=== PATIENT | female | born 1955 | race Caucasian/White ===

== ENCOUNTER 2022-11-02 12:08 | Outpatient (CLI) | payer OTHER, SELFPAY ==
[2022-11-02 08:43] LABS: Chloride* 105 mmol/L (96-114)
[2022-11-02 08:44] LABS: Potassium* 4.3 mmol/L (3.6-5.1); Sodium* 141 mmol/L (135-149)
[2022-11-02 08:46] LABS: Cholesterol* 263 mg/dL (90-199); Creatinine* 0.8 mg/dL (0.5-1.5); Estimated Glomerular Filt Rate 82 ml/min
[2022-11-02 08:47] LABS: Blood Urea Nitrogen* 24 mg/dL (7-30); Calcium* 9.5 mg/dL (8.4-10.6); Carbon Dioxide* 30 mmol/L (20-32); Glucose* 94 mg/dL (60-115); HDL Cholesterol* 101 mg/dL (>=50); LDL Cholesterol Calculated 139 mg/dL (<100); Triglycerides* 115 mg/dL (40-149)
== END 2022-11-02 12:09 | disposition home or self-care (01) ==
PROVIDERS: PCP Internal Medicine; Visit Provider Internal Medicine
DX: Z00.00 Encounter for general adult medical examination without abnormal findings (principal); I10 Essential (primary) hypertension; E78.5 Hyperlipidemia, unspecified
CPT/HCPCS: 80048; 80061

== ENCOUNTER 2023-01-03 16:50 | Emergency (ER) | payer OTHER, SELFPAY ==
[2023-01-03 17:09] VITALS: BP 207/95; PULSE 90; RESP 16; TEMP 36.2; O2SAT 98; BMI 28.8
--- NOTE | 2023-01-03 17:45 | ED.GENADULT ---
HPI - General Adult General Chief complaint: Unspecified Complaint, Adult Stated complaint: high BP since this morning, headache Time Seen by Provider: 01/03/23 17:15 History of Present Illness HPI narrative: This 67-year-old female states that she is feeling some fatigue and mild headache since yesterday. She comes in because she noticed that her blood pressure was elevated. She is taking lisinopril. She does not report any fevers. She is otherwise in good health normally. She states that she did start a new cholesterol medicine about a month or 2 ago. Related Data Home Medications Medication Instructions Recorded Confirmed loratadine 10 mg tablet 10 mg PO .prn 06/26/22 06/26/22 Previous Rx's Medication Instructions Recorded clobetasol 0.05 % topical cream 1 applic topical BID #30 grams 05/04/22 atorvastatin 20 mg tablet 20 mg PO QHS #90 tabs 11/05/22 lisinopril 10 mg tablet 10 mg PO DAILY #90 tabs 11/05/22 Allergies Allergy/AdvReac Type Severity Reaction Status Date / Time pseudoephedrine Allergy Severe Anaphylaxis Verified 11/05/22 07:44 [From Sudafed] codeine Allergy Intermediate Vomiting Verified 11/05/22 07:44 naproxen Allergy Intermediate Rash Verified 11/05/22 07:44 house dust mite Allergy Mild Sneezing Verified 11/05/22 07:44 latex Allergy Mild Rash Verified 11/05/22 07:44 Review of Systems Status of ROS: Reports: 10 or more systems reviewed and unremarkable except as noted in History and below Narrative: Constitutional: No fevers, no weight gain or loss. Eyes: No discharge. No vision changes. HENT: No congestion, no sore throat, no ear pain. Cardiovascular: No chest pain, no palpitations. Respiratory: No shortness of breath, no wheezes, no cough. Gastrointestinal: No abdominal pain, no vomiting, no diarrhea. Genitourinary: No dysuria, no hematuria. Musculoskeletal: Normal range of motion. Skin: No rashes, no pruritis. Neurological: No dizziness, weakness, sensory change, speech change. Endo/Heme/Allergies: No bruising or bleeding. No polydipsia. Pysch: no suicidality, no anxiety, no insomnia. All other systems reviewed and are negative. [facility] History (Updated 11/04/22 @ 09:28 by Samantha Musa) History of cholecystectomy (11/19/10) ?Z90.49 - Acquired absence of other specified parts of digestive tract (ICD-10) History of tonsillectomy ?Z90.89 - Acquired absence of other organs (ICD-10) Social History Smoking Status: Never smoker Little interest or pleasure in doing things: not at all Feeling down, depressed, or hopeless: not at all Exam Narrative: Exam Narrative: Constitutional: Well-developed, well-nourished, no acute distress. HEENT: Normocephalic, atraumatic. Neck: Normal range of motion. Nontender. Supple. Heart: Regular. No murmurs. Normal rate. Intact distal pulses. Lungs: Clear to auscultation. No chest discomfort. No wheezes, rhonchi, or rales. Abdomen: Normal bowel sounds. Nontender. No rebound tenderness. Genitalia: Deferred. Back: No midline tenderness. Normal range of motion. Extremities: Normal range of motion. No injury. Skin: Intact. No rash. Warm. No erythema or pallor. Neurologic: No altered sensation. No weakness. Alert and oriented. Psychiatric: No suicidality. No anxiety or depression. No insomnia. Nursing notes and vitals signs are reviewed. Const: Vital Signs, click to edit/add: Vital Signs - 24 hr 01/03/23 17:09 Temperature 97.1 F L Pulse Rate [Pulse Oximeter] 90 Respiratory Rate 16 Blood Pressure [Le ft Upper Arm] 207/95 H Pulse Oximetry 98 Oxygen Delivery Me thod Room Air Course Vital Signs Vital signs: Initial Vital Signs Temperature 97.1 F L 01/03/23 17:09 Temperature Source Temporal Artery Scan 01/03/23 17:09 Pulse Rate 90 01/03/23 17:09 Respiratory Rate 16 01/03/23 17:09 Blood Pressure 207/95 H 01/03/23 17:09 Blood Pressure Mean 132 01/03/23 17:09 Pulse Oximetry 98 01/03/23 17:09 Oxygen Delivery Method Room Air 01/03/23 17:09 Vital Signs Temperature 97.1 F L 01/03/23 17:09 Pulse Rate 90 01/03/23 17:09 Respiratory Rate 16 01/03/23 17:09 Blood Pressure 207/95 H 01/03/23 17:09 Pulse Oximetry 98 01/03/23 17:09 Oxygen Delivery Method Room Air 01/03/23 17:09 Temperature 97.1 F L 01/03/23 17:09 Pulse Rate 90 01/03/23 17:09 Respiratory Rate 16 01/03/23 17:09 Blood Pressure 207/95 H 01/03/23 17:09 Pulse Oximetry 98 01/03/23 17:09 Oxygen Delivery Method Room Air 01/03/23 17:09 Medical Decision Making MDM Narrative Medical decision making narrative: This patient comes in with some diffuse and mild symptoms but related to this she noticed that her blood pressure was elevated. She is taking lisinopril. She reports a mild headache and some generalized fatigue. I did take time to explain management of hypertension. I indicated the who criteria for making adjustment involves when person is feeling normal, at these 3 readings, and over the course of 2 weeks of time. She may need to follow-up with her primary physician if her blood pressure is persistently elevated. I did check labs and these returned with reassuring findings. Patient is okay to return home and encouraged to record her blood pressure and follow-up with her primary physician for ongoing management. Lab Data Labs: Lab Results 01/03/23 Range/Units 18:05 WBC 6.86 (4.50-11.00) K/uL RBC 4.81 (4.00-5.20) m/uL Hgb 14.3 (12.0-16.0) gm/dL Hct 44.0 (33.0-51.0) % MCV 92 (80-100) fL MCH 30 (26-34) pg MCHC 33 (32-36) gm/dL RDW Coeff of Eugene 12.6 (11.5-15.5) % Plt Count 245 (140-440) K/uL Neut % (Auto) 76.5 H (42.0-72.0) % Lymph % (Auto) 17.3 L (20-44) % Ripley % (Auto) 5.1 (0.0-11.0) % Eos % (Auto) 0.9 (0.0-7.0) % Baso % (Auto) 0.1 (0.0-3.0) % Neut # (Auto) 5.20 (1.7-7.0) K/uL Lymph # (Auto) 1.20 (0.90-2.90) K/uL Ripley # (Auto) 0.30 (0.00-0.90) K/UL Eos # (Auto) 0.06 (0.00-0.50) K/uL Baso # (Auto) 0.01 (0.00-0.30) K/uL Sodium 138 (135-149) mmol/L Potassium 4.9 (3.6-5.1) mmol/L Chloride 104 (96-114) mmol/L Carbon Dioxide 30 (20-32) mmol/L BUN 15 (7-30) mg/dL Creatinine 0.7 (0.5-1.5) mg/dL Estimated Creat Clear 47.79 Estimated GFR 95 ml/min Glucose 101 (60-115) mg/dL Calcium 9.5 (8.4-10.6) mg/dL Total Bilirubin 0.8 (0.1-1.5) mg/dL Direct Bilirubin 0.2 (0.0-0.5) mg/dL AST 31 (12-35) U/L ALT 29 (4-35) U/L Alkaline Phosphatase 74 (40-150) U/L Total Protein 8.0 (6.0-8.3) g/dL Albumin 4.5 (3.3-5.0) g/dL Discharge Plan Discharge Clinical Impression: Elevated blood pressure reading Patient Disposition: Home, Self-Care Condition: Stable Additional Instructions: Continue current plans. Recheck blood pressure and follow-up with primary physician if readings are persistently elevated. Prescriptions: No Action loratadine 10 mg tablet 10 mg PO .prn lisinopril 10 mg tablet 10 mg PO DAILY Qty: 90 3RF atorvastatin 20 mg tablet 20 mg PO QHS Qty: 90 3RF clobetasol 0.05 % cream 1 applic topical BID Qty: 30 2RF Follow Up/Referrals: Bina Gann MD [Primary Care Provider] - Stand Alone Forms: [employer] Info Instructions
[2023-01-03 18:14] LABS: Basophils Absolute Auto 0.01 K/uL (0.00-0.30); Basophils Percent Auto 0.1 % (0.0-3.0); Eosinophils Absolute Auto 0.06 K/uL (0.00-0.50); Eosinophils Percent Auto 0.9 % (0.0-7.0); Hemoglobin* 14.3 gm/dL (12.0-16.0); Immature Granulocytes Abs Auto 0.01 K/uL (0.00-0.30); Immature Granulocytes Pct Auto 0.1 %; Lymphocytes Percent Auto 17.3 % (20-44); Mean Corpuscular HGB Conc 33 gm/dL (32-36); Mean Corpuscular Hemoglobin 30 pg (26-34); Mean Corpuscular Volume 92 fL (80-100); Monocytes Percent Auto 5.1 % (0.0-11.0); Neutrophils Percent Auto 76.5 % (42.0-72.0); Platelet Count* 245 K/uL (140-440); RDW Coefficient of Variation % 12.6 % (11.5-15.5); Red Blood Count 4.81 m/uL (4.00-5.20); White Blood Count* 6.86 K/uL (4.50-11.00)
[2023-01-03 18:18] LABS: Slide Review Reflex No
[2023-01-03 18:27] LABS: Albumin* 4.5 g/dL (3.3-5.0); Chloride* 104 mmol/L (96-114)
[2023-01-03 18:28] LABS: Potassium* 4.9 mmol/L (3.6-5.1); Sodium* 138 mmol/L (135-149)
[2023-01-03 18:30] LABS: Alkaline Phosphatase* 74 U/L (40-150); Aspartate Amino Transferase* 31 U/L (12-35); Bilirubin Direct* 0.2 mg/dL (0.0-0.5); Bilirubin Total* 0.8 mg/dL (0.1-1.5); Blood Urea Nitrogen* 15 mg/dL (7-30); Carbon Dioxide* 30 mmol/L (20-32); Creatinine* 0.7 mg/dL (0.5-1.5); Est. Creatinine Clearance* 47.79; Estimated Glomerular Filt Rate 95 ml/min
[2023-01-03 18:31] LABS: Alanine Aminotransferase* 29 U/L (4-35); Calcium* 9.5 mg/dL (8.4-10.6); Glucose* 101 mg/dL (60-115)
[2023-01-03 19:01] VITALS: BP 187/89; PULSE 90; RESP 16; TEMP 36.2
[2023-01-03 19:02] VITALS: BP 187/89
== END 2023-01-03 19:01 | disposition home or self-care (01) ==
PROVIDERS: Emergency Provider Emergency Medicine Emergency Medical Services; PCP Internal Medicine
DX: I10 Essential (primary) hypertension (principal)
CPT/HCPCS: 36415; 80048; 80076; 85025; 99283; 99284

== ENCOUNTER 2023-01-27 12:46 | Outpatient (CLI) | payer OTHER, SELFPAY ==
--- NOTE | 2023-01-27 13:00 | CRLHL7_ITS ---
For Patients: As a result of the Century Cures Act, medical imaging exams and procedure reports are released immediately into your electronic medical record. You may view this report before your referring provider. If you have questions, please contact your health care provider. BILATERAL SCREENING MAMMOGRAM WITH COMPUTER-AIDED DETECTION TECHNIQUE: CC and MLO views were obtained. These mammographic images have been obtained using full-field digital technique. These mammographic images were interpreted with the benefit of computer-aided detection. COMPARISON FILM: 10/09/21, 11/24/18, 05/03/17. FINDINGS: There are scattered areas of fibroglandular density IMPRESSION: There is no radiographic evidence for malignancy. ASSESSMENT: BI-RADS Category 1: Negative RECOMMENDATION: Routine screening mammogram in 1 year. A lay language report of this examination will be provided to the patient. MARISA ANGLIN M.D. Diagnostic/Nuclear Medicine Radiologist [email or web address] HENRI:clark Transcribed: 1:07 p.breanna rodas/Dictated by: Marisa Anglin MD @ 01/28/2023 8:17:00 AM (Electronically Signed)
--- NOTE | 2023-01-27 13:30 | CRLHL7_ITS ---
For Patients: As a result of the Century Cures Act, medical imaging exams and procedure reports are released immediately into your electronic medical record. You may view this report before your referring provider. If you have questions, please contact your health care provider. DXA BONE MINERAL DENSITY STUDY Reason for exam: Asymptomatic age-related postmenopausal state. Current height (in): 64. Weight (lb): 165. Menopause age: 46. Ethnicity: White. 1. Have you had a previous hip or vertebral fracture? No. 2. Have you had any fractures during your adult life which did not result from significant trauma (e.g., auto accident)? No. 3. Did either of your parents have a hip fracture? No. 4. Do you smoke? No. 5. Have you ever taken Glucocorticoids? No. 6. Do you have rheumatoid arthritis? No. 7. Do you have secondary osteoporosis? No. 8. Do you drink 3 or more alcoholic drinks per day? No. 9. Are you being treated for osteoporosis? No. 10. Have you ever taken any of the following medications: Actonel, Evista, Fosamax, Miacalcin, Reclast, Boniva, Forteo, HRT (i.e. estrogen/hormone therapy), Protelos, Prolia, Vitamin D, Calcium, other ??? please specify. ANSWER: None. 11. Do you have any of the following medical conditions: Anorexia or bulimia, asthma or emphysema, end stage renal disease, hyperparathyroidism, any seizure disorders, cancer, inflammatory bowel diseases, hysterectomy, other ??? please specify. ANSWER: None. 12. What was your maximum height (inches)? 64. 13. Do you perform weight bearing exercise regularly? No. 14. Do you regularly consume dairy products? No. 15. Do you drink caffeinated beverages? Yes. 16. At what age did your period start? 14. 17. Are you premenopausal? No. 18. How many full term pregnancies have you had? 3. 19. Have you ever missed your period for more than 6 months in a row (not including or menopause)? No. TECHNIQUE: Bone mineral density study was performed using the [employer]. FINDINGS: The results of the study expressed as bone mineral density (BMD) are as follows: Lumbar spine L1 to L4: BMD: 0.816 g/cm2. T-score: -2.0. Z-score: -0.2. Neck Left: BMD: 0.671 g/cm2. T-score: -1.6. Z-score: -0.0. Right: BMD: 0.646 g/cm2. T-score: -1.8. Z-score: -0.3. Total Left: BMD: 0.716 g/cm2. T-score: -1.9. Z-score: -0.6 Right: BMD: 0.767 g/cm2. T-score: -1.4. Z-score: -0.1 IMPRESSION: Osteopenia. *Comparison exams done prior to 03/2020 were performed on different unit, [employer]. FRAX 10-year Fracture Risk Major Osteoporotic Fracture: 10 percent Hip Fracture: 1.4 percent Reported Risk Factors: [place] () Neck BMD=0.646, BMI=28.3 Michael Joel M.D. Diagnostic/Nuclear Medicine Radiologist [email or web address] TATA/Dictated by: Michael Joel MD @ 01/27/2023 7:29:00 PM (Electronically Signed)
== END 2023-01-27 12:47 | disposition home or self-care (01) ==
LOC: MAMMO 12:47
PROVIDERS: PCP Internal Medicine; Visit Provider Internal Medicine
DX: Z12.31 Encounter for screening mammogram for malignant neoplasm of breast (principal); Z78.0 Asymptomatic menopausal state; M85.89 Other specified disorders of bone density and structure, multiple sites
CPT/HCPCS: 77067; 77080

== ENCOUNTER 2023-02-01 07:37 | Outpatient (CLI) | payer OTHER, SELFPAY | END 2023-02-01 07:38 | disposition home or self-care (01) | LOC: NFLDREF 02-02 11:14 | PROVIDERS: PCP Internal Medicine; Referring Provider Internal Medicine; Visit Provider Internal Medicine | DX: E78.5 Hyperlipidemia, unspecified (principal) | CPT/HCPCS: 80061 ==

== ENCOUNTER 2023-05-04 07:44 | Outpatient (CLI) | payer OTHER, SELFPAY | END 2023-05-04 07:45 | disposition home or self-care (01) | LOC: NFLDREF 05-06 09:21 | PROVIDERS: PCP Internal Medicine; Referring Provider Internal Medicine; Visit Provider Internal Medicine | DX: E78.5 Hyperlipidemia, unspecified (principal) | CPT/HCPCS: 80061 ==

== ENCOUNTER 2023-12-07 07:39 | Outpatient (CLI) | payer MEDICARE, BC, SELFPAY | END 2023-12-07 07:40 | disposition home or self-care (01) | LOC: NFLDREF 12-20 12:39 | PROVIDERS: PCP Internal Medicine; Referring Provider Internal Medicine; Visit Provider Internal Medicine | DX: E78.5 Hyperlipidemia, unspecified (principal); I10 Essential (primary) hypertension | CPT/HCPCS: 80048; 80061 ==

== ENCOUNTER 2024-02-11 09:27 | Outpatient (CLI) | payer MEDICARE, SELFPAY ==
--- OUTSIDE RECORDS SUMMARY | 2024-02-11 09:29 | XMS_ITS | Clinical Summary ---
Author Name Unknown Organization [facility] Address [place], [place] [address] Care Team Providers Care Pitch Filler Name Role Phone Bina Gann MD Primary Care Provider [phone] Allergies Active Allergy Reactions Criticality Noted Date Comments Pseudoephedrine Rash 10/16/2017 Cetirizine Rash 10/16/2017 Medications Medication Sig Dispensed Refills Start Date End Date Status lisinopril (PRINIVIL; ZESTRIL) 10 mg tablet Take 1 tablet by mouth once daily. 0 10/16/2017 Active Social History Tobacco Use Types Packs/Day Years Used Date Smoking Tobacco: Never Smokeless Tobacco: Never Tobacco Cessation:Counseling Given: Yes Sex and Gender Information Value Date Recorded Sex Assigned at Not on file Gender Identity Not on file Sexual Orientation Not on file Obstetrics History Last Filed Vital Signs Vital Sign Reading Time Taken Comments Blood Pressure 143/81 10/16/2017 10:28 AM BEATER OUT Pulse 71 10/16/2017 10:28 AM BEATER OUT Temperature 37.1 ??C (98.8 ??F) 10/16/2017 10:[address] Respiratory Rate - - Oxygen Saturation 97% 10/16/2017 10:28 AM BEATER OUT Inhaled Oxygen Concentration - - Weight 72.6 kg (160 lb) 10/16/2017 10:28 AM BEATER OUT Height - - Body Mass Index - - Plan of Treatment Health Maintenance Due Date Last Done Comments Tdap 1967 Depression screening for age 12+ 1968 BMI (ht and wt on same day) for age 18+ 1974 Hepatitis C screening for age 18-79 1974 Tetanus booster 1976 Colonoscopy through age 75 2001 Lipids for age 45-75 2001 Mammogram for age 45-75 2001 Zoster (shingles) series for age 50+ (1 of 2) 11/05/19 07 DEXA/DXA scan for age 65+ 2021 Pneumococcal series for age 65+ (1 of 1 - PCV) 022 COVID-19 vaccine series ( - 2022-24 season) 3 Influenza for age 65+ 06/04/2024 Care Teams Pitch Filler Relationship Specialty Start Date End Date Bina Gann MD [address] [place] [address] PCP - General Internal Medicine 10/16/17
--- NOTE | 2024-02-11 09:45 | MM_ITS ---
Patient: GLORIA AUGUSTE Facility:?[facility] Patient ID:?[id number] Site Patient ID:?[id number] Site :?[id number] Study:?XRay-Breast Bilateral 3D W/CAD-02/11/2024 10:58:10 AM Ordering Physician:Bina Alvarez Final Report: BILATERAL SCREENING MAMMOGRAM WITH COMPUTER-AIDED DETECTION AND TOMOSYNTHESIS TECHNIQUE: CC and MLO views were obtained. These mammographic images have been obtained using full-field digital technique. These mammographic images were interpreted with the benefit of computer-aided detection. Breast Tomosynthesis was used in this interpretation. COMPARISON FILM: 01/27/23, 10/09/21, 11/24/18. FINDINGS: There are scattered areas of fibroglandular density. IMPRESSION: There is no radiographic evidence for malignancy. ASSESSMENT: BI-RADS Category 1: Negative RECOMMENDATION: Routine screening mammogram in 1 year. A lay language report of this examination will be provided to the patient. Nemesio Hernandez M.D. Diagnostic Radiologist [email or web address] LUCIAN/sp R& Transcribed: 3:43 p.m. SP/Dictated by: Nemesio Hernandez MD @ 02/14/2024 11:22:00 AM Signed by:?Nemesio Hernandez MD @02/14/2024 4:00:49 PM (Electronic Signature)
== END 2024-02-11 09:28 | disposition home or self-care (01) ==
PROVIDERS: PCP Internal Medicine; Visit Provider Internal Medicine
DX: Z12.31 Encounter for screening mammogram for malignant neoplasm of breast (principal)
CPT/HCPCS: 77063; 77067

== ENCOUNTER 2024-05-29 17:08 | Emergency (ER) | payer MEDICARE, BC, SELFPAY ==
[2024-05-29 17:15] VITALS: BP 176/80; PULSE 75; RESP 16; TEMP 36.7; O2SAT 96; BMI 29.2
--- OUTSIDE RECORDS SUMMARY | 2024-05-29 17:58 | XMS_ITS | Clinical Summary ---
Author Organization [facility] Address [place], [place] [address] Care Team Providers Care Record Changer Name Role Phone Bina Gann MD Primary Care Provider [phone]- [phone] Allergies Active Allergy Reactions Criticality Noted Date [...] Comments Blood Pressure 143/81 10/16/2017 10:28 AM CONFIGURATOR Pulse 71 10/16/2017 10:28 AM CONFIGURATOR Temperature 37.1 ??C (98.8 ??F) 10/16/2017 10:[address] Respiratory Rate - - Oxygen Saturation 97% 10/16/2017 10:28 AM CONFIGURATOR Inhaled Oxygen Concentration - - Weight 72.6 kg (160 lb) 10/16/2017 10:28 AM CONFIGURATOR Height - - Body Mass Index - [...] Influenza for age 65+ 06/04/2024 Care Teams Record Changer Relationship Specialty Start Date End Date Bina Gann MD [address] [place] [address] PCP - General Internal Medicine 10/16/17
--- NOTE | 2024-05-29 18:07 | ED_ITS ---
HPI - General Adult General Chief complaint: Unspecified Complaint, Adult Stated complaint: bat encounter Time Seen by Provider: 05/29/24 17:15 History of Present Illness HPI narrative: This 68-year-old female is in with her because they contacted the [place] department [facility] and were instructed to come here. They state that they noticed a bat in their bedroom about 3 mornings ago. The patient thinks that she felt something brush against her face at 1 point the night before. There is no sign or symptom of injury or a bite from this bat. According to guidelines for treatment they present here to receive the immune globulin and vaccinations. Related Data Home Medications ?Medication ?Instructions ?Recorded ?Confirmed loratadine 10 mg tablet 10 mg PO .prn 06/26/22 12/13/23 calcium citrate 315 mg-vitamin D3 2 tab PO BID 12/13/23 12/13/23 5 mcg (200 unit) tablet (Calcium Citrate + D) clobetasol 0.05 % topical cream 1 applic topical BID PRN 12/13/23 12/13/23 Previous Rx's ?Medication ?Instructions ?Recorded alendronate 35 mg tablet 35 mg PO QWEEK #12 tabs 12/13/23 atorvastatin 20 mg tablet 20 mg PO QHS #90 tabs 12/13/23 lisinopril 10 mg tablet 10 mg PO DAILY #90 tabs 12/13/23 Allergies Allergy/AdvReac Type Severity Reaction Status Date / Time pseudoephedrine Allergy Severe Anaphylaxis Verified 12/13/23 10:28 [From Carina] codeine Allergy Intermediate Vomiting Verified 12/13/23 10:28 naproxen Allergy Intermediate Rash Verified 12/13/23 10:28 house dust mite Allergy Mild Sneezing Verified 12/13/23 10:28 latex Allergy Mild Rash Verified 12/13/23 10:28 Review of Systems Status of ROS: Reports: 10 or more systems reviewed and unremarkable except as noted in History and below Narrative: Constitutional: No fevers, no weight gain or loss. Eyes: No discharge. No vision changes. HENT: No congestion, no sore throat, no ear pain. Cardiovascular: No chest pain, no palpitations. Respiratory: No shortness of breath, no wheezes, no cough. Gastrointestinal: No abdominal pain, no vomiting, no diarrhea. Genitourinary: No dysuria, no hematuria. Musculoskeletal: Normal range of motion. Skin: No rashes, no pruritis. Neurological: No dizziness, weakness, sensory change, speech change. Endo/Heme/Allergies: No bruising or bleeding. No polydipsia. Pysch: no suicidality, no anxiety, no insomnia. All other systems reviewed and are negative. [facility] Surgical History (Updated 11/04/22 @ 09:28 by Samantah Musa) History of tonsillectomy ?Z90.89 - Acquired absence of other organs (ICD-10) History of cholecystectomy (11/19/10) ?Z90.49 - Acquired absence of other specified parts of digestive tract (ICD- 10) Social History (Updated 12/10/23 @ 09:38 by Tanisha Lucero ~ [facility]) What is your current living situation?: I presently have a place to live Problems where you live: no known problems In the past 12 months, utilities in danger of being shut off: no In past 12 months, lack of transportation kept you from medical appts, meetings, work, or getting things needed for daily living: no In the past 12 mos, have been you worried that your food would run out before yo u had money to buy more?: never true In the past 12 mos, the food you bought just didn't last and you didn't have money to buy more?: never true Smoking Status: Never smoker Non-prescribed substance use: denies use How often does anyone, including family, friends and others, physically hurt you : never How often does anyone, including family, friends and others, insult or talk down to you: never How often does anyone, including family, friends and others, threaten you with harm: never How often does anyone, including family, friends and others, scream or curse at you: never Little interest or pleasure in doing things: not at all Feeling down, depressed, or hopeless: not at all Exam Narrative: Exam Narrative: Constitutional: Well-developed, well-nourished, no acute distress. HEENT: Normocephalic, atraumatic. Neck: Normal range of motion. Nontender. Supple. Heart: Intact distal pulses. Lungs: No chest discomfort. No wheezes, rhonchi, or rales. Abdomen: Nontender. Back: Normal range of motion. Extremities: Normal range of motion. No injury. Skin: Intact. No rash. Warm. No erythema or pallor. Neurologic: No altered sensation. No weakness. Alert and oriented. Psychiatric: No suicidality. No anxiety or depression. No insomnia. Nursing notes and vitals signs are reviewed. Const: Vital Signs, click to edit/add: Vital Signs - 24 hr 05/29/24 17:15 Temperature 98.1 F Pulse Rate [Pulse Oximeter] 75 Respiratory Rate 16 Blood Pressure [Ri ght Upper Arm] 176/80 H Pulse Oximetry 96 Oxygen Delivery Me thod Room Air Course Vital Signs Vital signs: Initial Vital Signs Temperature 98.1 F 05/29/24 17:15 Temperature Source Temporal Artery Scan 05/29/24 17:15 Pulse Rate 75 05/29/24 17:15 Pulse Rhythm Regular 05/29/24 17:15 Respiratory Rate 16 05/29/24 17:15 Blood Pressure 176/80 H 05/29/24 17:15 Blood Pressure Mean 112 H 05/29/24 17:15 Blood Pressure Position Sitting 05/29/24 17:15 Pulse Oximetry 96 05/29/24 17:15 Oxygen Delivery Method Room Air 05/29/24 17:15 Vital Signs Temperature 98.1 F 05/29/24 17:15 Pulse Rate 75 05/29/24 17:15 Respiratory Rate 16 05/29/24 17:15 Blood Pressure 176/80 H 05/29/24 17:15 Pulse Oximetry 96 05/29/24 17:15 Oxygen Delivery Method Room Air 05/29/24 17:15 Temperature 98.1 F 05/29/24 17:15 Pulse Rate 75 05/29/24 17:15 Respiratory Rate 16 05/29/24 17:15 Blood Pressure 176/80 H 05/29/24 17:15 Pulse Oximetry 96 05/29/24 17:15 Oxygen Delivery Method Room Air 05/29/24 17:15 Discharge Plan Discharge Clinical Impression: At increased risk for exposure to rabies virus Patient Disposition: Home, Self-Care Condition: Stable Additional Instructions: Return to emergency department on June 01, June 05, and June 12 for repeat injections to complete the vaccine series. Follow up with MD otherwise as needed. Prescriptions: No Action loratadine 10 mg tablet 10 mg PO .prn clobetasol 0.05 % cream 1 applic topical BID PRN alendronate 35 mg tablet 35 mg PO QWEEK Qty: 12 3RF atorvastatin 20 mg tablet 20 mg PO QHS Qty: 90 3RF lisinopril 10 mg tablet 10 mg PO DAILY Qty: 90 3RF calcium citrate-vitamin D3 [Calcium Citrate + D] 315 mg-5 mcg (200 unit) tablet 2 tab PO BID Follow Up/Referrals: Bina Gann MD [Primary Care Provider] - Stand Alone Forms: [facility] Info Instructions
[2024-05-29] MEDS: RABIES IMMUNE GLOBULIN 150 UNIT/ML INJ 1545 UNIT INFILTRATI (18:47)
[2024-05-29 19:09] VITALS: BP 164/87; PULSE 97
== END 2024-05-29 19:10 | disposition home or self-care (01) ==
PROVIDERS: Emergency Provider Emergency Medicine Emergency Medical Services; PCP Internal Medicine
DX: Z20.3 Contact with and (suspected) exposure to rabies (principal); Z23 Encounter for immunization
CPT/HCPCS: 90399; 90471; 90675; 96372; 99283; 99284

== ENCOUNTER 2025-01-05 07:30 | Outpatient (CLI) | payer MEDICARE, BC, SELFPAY | END 2025-01-05 07:31 | disposition home or self-care (01) | LOC: NFLDREF 01-10 20:17 | PROVIDERS: PCP Internal Medicine; Referring Provider Internal Medicine; Visit Provider Internal Medicine | DX: I10 Essential (primary) hypertension (principal); E78.5 Hyperlipidemia, unspecified; R63.5 Abnormal weight gain; M85.80 Other specified disorders of bone density and structure, unspecified site | CPT/HCPCS: 80048; 80061; 82306; 84443 ==

== ENCOUNTER 2025-03-15 11:24 | Outpatient (CLI) | payer MEDICARE, BC, SELFPAY ==
--- NOTE | 2025-03-15 11:30 | CRLHL7_ITS ---
For Patients: As a result of the Century Cures Act, medical imaging exams and procedure reports are released immediately into your electronic medical record. You may view this report before your referring provider. If you have questions, please contact your health care provider. INDICATION: BILATERAL SCREENING MAMMOGRAM, ASYMPTOMATIC 69 Y/O FEMALE COMPARISON: 02/11/2024, 01/27/2023, 10/09/2021 TECHNIQUE: Digital mammogram in CC and MLO projections including computer-aided detection (CAD) and tomosynthesis. BREAST COMPOSITION: There are scattered areas of fibroglandular density. FINDINGS: No suspicious findings. ASSESSMENT: BI-RADS 1 Negative RECOMMENDATION: Annual screening mammogram. A lay language report of this examination will be provided to the patient. Dictated by: Nemesio Hernandez MD @ 03/16/2025 10:24:51 (Electronically Signed)
== END 2025-03-15 11:25 | disposition home or self-care (01) ==
LOC: MAMMO 11:24
PROVIDERS: PCP Internal Medicine; Visit Provider Internal Medicine
DX: Z12.31 Encounter for screening mammogram for malignant neoplasm of breast (principal)
CPT/HCPCS: 77063; 77067

== ENCOUNTER 2025-04-11 08:30 | Outpatient (RCR) | payer MEDICARE, BC, SELFPAY ==
--- NOTE | 2025-03-06 12:07 | PT.OPEX ---
PT [place] Outpatient Eval PT [facility] Outpatient Eval Start: 03/06/25 10:23 Freq: Status: Active Protocol: Document 03/06/25 10:23 S (Rec: 03/06/25 12:02 S [id number]) E-signed By Estela Martinez Physical Therapy Outpatient Evaluation Insurance Information Recert Due Date 05/29/25 Insurance Name Medicare B Insurance [place] Information/Comments Medical Diagnosis R hip pain Treating Diagnosis R hip pain Muscle weakness (generalized) Impaired balance Referring MD Bina Gann Subjective Preferred Name Trish Subjective March 06 2025 : Trish is a 69 year F with complaints of R hip pain. Sometimes will feel pain into the groin. She has seen her PCP for this pain and was referred to PT. Has her son's wedding on March 24 and would like to be able to walk/dance with minimal pain, if possible . Looking for strengthening exercises at PT. Date of onset: 6 months ago Aggravating Factors: stairs, gardening, increased activity Easing Factors: ibuprofen PRN, rest, elevation of LE Method of Injury: insidious onset Radiation: Denies Numbness / Tingling: Denies Progression: gradually getting worse Falls: fall in December. Reports no injuries resultant from fall. History of Hip injuries: denies hip pain/injuries. Reports hx of leg length discrepancy. Activity level: 2-3 days/week gardening (raking, kneeling, climbing, bending down), walks on treadmill ( mainly in the winter) Review of Systems: History obtained from chart review, health history form, and the patient. I am only responding to those symptoms which are directly relevant to my consultation. Recommend the patient follow up with their primary/referring provider for other symptoms. Pain Comments Pain Location/Type: C sign into anterior groin area; aches but becomes sharp/shooting when ascending/ descending stairs. 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 Objective Other/Pertinent Functional Tests: Objective Gait: slightly decreased stance time on the R Squats: good depth, limited weight shift forward, valgus moment Balance (SL eyes open): L: 9 sec; R: 19 sec Palpation: TTP along the joint line on the R. No TTP over the greater trochanter, through the gluteal region , or along the pelvic bones Posture/Observation: off loads onto the L AROM: Hip: Flex: limited on R Ext: limited bilat Abd: WFL Add: WFL IR: limited bilaterally ER: WFL Strength Knee: Quadriceps: 5/5 bilat Hamstrings: 5/5 bilat Hip: Flex: 5/5 bilat Ext: 4+/5 bilat --> subjectively harder on L Glute Med: 3+/5 bilat TFL: 5/5 bilat Adduction: 3+/5 bilat Muscle Length Yaw Test: (+) bilat for rec fem tightness (73 deg bilat) Gin's Test: (+) on R Nickie's Test: WFL Hamstring 90/90: (+) on L; WFL on R Special Tests: SLR (+) for hamstring tightness Slump (-) SAQIB: MIKEY: (+) on R Log Roll: (-) Scour: (-) bilat Assessment Assessment/ 2025-03-06: Initial Evaluation Assessment & PT Impression Impression: Mrs. Bourgeois is a pleasant 69 year female presenting to outpatient physical therapy with primary complaint of R hip pain. Pertinent physical examination findings include limited hip IR bilaterally, bilateral hip abduction and adduction weakness, rectus femoris tightness bilaterally, impaired balance, and a positive MIKEY test on the R. Functionally, the patient is limited in activities including stair navigation, increased activity levels and participation in recreational activities such as gardening. At this time , it is likely Mrs. Bourgeois's pain is due to degenerative changes of the hip. Education to patient regarding results of examination, purpose for HEP, and POC. She requires skilled physical therapy in order to address the above impairments, improve patients symptom status, and assist her in returning to her prior level of function. Barriers to Learning: None Primary Functional stairs, recreational activities such as gardening, Limitations increased activity levels. Plan of Care Rehabilitation Good Potential Physical Therapy STG: Goals 1. Patient will be independent with HEP by the end of 2 weeks. 2. Patient will be able to walk for 20 minutes with no greater than 2/10 pain by the end of 4 weeks. LT. Patient will be able to ascend/descend stairs with no AD with no greater than 3/10 pain by the end of 8 weeks. 2. Patient will be able to garden for at least 1 hour with no greater than 3/10 pain by the end of 8 weeks. 3. Patient will improve hip abduction strength to at least 4/5 bilaterally by the end of 8 weeks. 4. Patient will improve hip adduction strength to at least 4/5 bilaterally by the end of 8 weeks. Coordination/ Referral Source Communication With Treatment Plan/ Joint Mobilization,Manual Therapy,Neuromuscular Re-ed, Direct Interventions Therapeutic Activities,Therapeutic Exercises Frequency/Duration 1x/week for 8 weeks Patient Will Be Completion of LTG(s),Independent w/HEP,Independently Discharged From Progressing Therapy Evaluation Billing Untimed Code 38 Treatment Minutes Complexity Low Certification Information Initial 03/06/25 Certification Date Ending Certification 05/29/25 Date Provider Signature Yes Required Provider Signature POC & Medical Necessity Shows Agreement With Physician NPI Number Write NPI# Here Physician Comment/ : Change Physician Signature Please Sign/Date Here & Date Requested
== END 2025-08-09 23:59 | disposition home or self-care (01) ==
PROVIDERS: PCP Internal Medicine; Visit Provider Internal Medicine
DX: M25.552 Pain in left hip (principal); M25.551 Pain in right hip; Z51.89 Encounter for other specified aftercare
CPT/HCPCS: 97110; 97112; 97161